=== PATIENT | male | born 1955 | race Caucasian/White ===

== ENCOUNTER → 2024-01-21 18:00 | Outpatient (REF) | payer MEDICARE, OTHER, SELFPAY ==
--- NOTE | 2024-01-17 11:05 | PN.DIAED02 ---
Referral
DSME Class Series Code: [id number]
Referred For: Diabetes Self-Management Training
PHI Release Authorization Form Signed: Yes
Patient Problems:
Current Active Problems
Problem Status Onset
Type 2 diabetes mellitus
Demographic
(1) Type 2 diabetes mellitus
Status: Acute Code(s): E11.9 - Type 2 diabetes mellitus without complications
Patient's primary language-: Lao
Education: Advanced college degree
Occupation: Retired
- Social
Primary Support Person: Self & spouse
Primary Care Takers: Self
Living Arrangements: Self & spouse
- Learning Methods
Preferred Method: Lecture/audio
Barriers to Learning: None
Glycemic Control
- Blood Glucose Monitoring Assessment
Date: 01/17/24
Blood glucose monitoring at home: No
Monitor Brands: [employer] (Contour Next EZ)
Frequency: 2x per day
Time: fasting, after breakfast, after lunch, after dinner
- Hemoglobin A1c
Date: 12/26/23
A1C Percentage (%): 6.5
Medical History of Diabetes
Family Diabetes History: Mother, Sibling (brother), Grandmother
Previous Diabetes Education: No
Previous visit with Dietitian: No
Complications/Comorbidity/Specialist: Hypertension
Measures
- Anthropometrics
Height: 5 ft 11 in
Actual Weight: 209 lb (intentional 12# weight loss)
- Blood Pressure / Pulse
Blood pressure: 125/80
- Diabetes Management
Medical Management for Diabetes: Complete physical exam (12/24/2023), Dental exam (01/02/2024), Dilated eye exam (03/07/2023), Flu Vaccination (08/27/2023), Other (Covid-19 vaccine-01/25/21,04/13/22,11/03/21,10/04/22)
Self-Care
- Tobacco Usage
Do you now, or have you ever smoked?: Never smoked
- Alcohol & Drugs Usage
Drinks Alcohol: Yes
Amount/day: < 1 drink per day (usually drinks 1 beer/day, has stopped since dx, now once weekly)
- Meals & Dining
Meals & Dining: Patient skips meals: No, Food Intolerance / Allergy: No, Cultural / Temple Dietary Needs: No
Primary Food Facilities And Grounds Director: Spouse
Primary Behavioral Specialist: Spouse
Dining Out Frequency: 1-3x per week (2)
- Physical Activity
Physical Limitation: No
Patient participates in physical Activity: Yes
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
Duration: > 50 minutes
Frequency: 1-2x per week (2)
Intensity: Easy
- Patient-Self Assessment
Diabetes Knowledge: Fair
Feelings About Diabetes: Fear (verbalized to me), Overwhelmed / Confused
General Health: Good
Importance of Health: Extremely
Stress Level: High
Diabetes Interferes With:: Other ('not sure yet')
Depression Survey Score: 8
Care Plan
- Education Needs
Patient Education Needs: Diabetes disease process, Chronic complications, Acute complications, Medication, Monitoring, Physical activity, Psychosocial Adjustment, Nutritional management, Goal setting & problem solving
Recommended Diabetes Training Program based on assessment: Outpatient Diabetes Education Program
- Plan of Care
Plan of Care:
Sal recently diagnosed, A1C 6.5%. No medications for diabetes at this time. He has made dietary changes, consuming protein prior to meals, decreasing daily consumption of 1 beer to having 1 weekly. He states insurance will pay for any meter.
Provided with and instructions given on Contour Next EZ glucometer. Good return demonstration with result 105 mg/dl, 3 hr post breakfast. Aware of testing technique, sites, testing pattern and expected results (handout provided). To test 2x/day for
3 days, then 3 days off, or test every other day 2x/day. Goals established and direction to class given. (Marizol)present and to attend classes as support. Phone number provided for follow up questions.
--- NOTE | 2024-01-17 11:39 | PN.DIAED04 ---
Education Record
- Education Record
Class Attended: Class 1 (pre registration 01/17/24 or outpt DSME classes starting 01/21/24)
DSME Class Series Code: [id number]
Instructor: Registered Nurse (Nisha Vega, RN, BSN, [facility])
Class Curriculum:
Outpatient Diabetes Education Program:
Initial Assessment (45 minutes)
Individualized assessment
Develop personal strategies to promote health and behavior change
Development of diabetes self-management support plan
Class Length (mins): 45
Pre-Program Knowledge: Needs review / Assistance
Pre-Test Score (%): 71
Goals
- Goal 1
Being Active: Exercise more often (Goal is to walk, ride bicycle 4 times/week for 30 minutes (at least))
Goals To Be Evaluated: Exercise more often
- Goal 2
Healthy Eating: Make better food choices (has 'changed my diet on a dime'), Follow meal plan, Reduce portion sizes
Goals To Be Evaluated: Make better food choices. Follow meal plan. Reduce portion sizes
- Goal 3
Monitoring: Take blood sugar in the prescribed pattern
Goals To Be Evaluated: Test BG-prescribed times
--- NOTE | 2024-01-22 13:38 | PN.DIAED14 ---
This is to notify you that your patient with diabetes, RAFAEL NICHOLS ( 1955), has enrolled in our diabetes self-management classes that are being held at [facility].
These classes will include an introduction to diabetes, diet, medication, exercise and prevention of complications. At the end of our class series, you will receive a report of your patient's participation and progress for your records.
Please contact me at the Diabetes Center, , if there is any particular information regarding your patient that might be helpful to me.
Sincerely,
--- NOTE | 2024-01-22 13:38 | PN.DIAED04 ---
Education Record
- Education Record
Class Attended: Class 1
DSME Class Series Code: [id number]
Instructor: Registered Nurse (Nisha Vega, RN, BSN, CDE)
Class Length (mins): 120
Post-Class 1 Test Score (%): 94
--- NOTE | 2024-01-28 14:13 | PN.DIAED06 ---
Meal Plans - Regular
- Meal Plan
Diabetic Meal Plan Name: 2000 calories
Breakfast - Total Carbohydrate (grams): 45
Breakfast - Starch Carbohydrate: 0
Breakfast - Fruit Carbohydrate: 0
Breakfast - Milk Carbohydrate: 0
Breakfast - Nonstarchy Vegetables: Yes
Breakfast - Meat/Protein: 1
Breakfast - Fat: 2
Morning Snack - Total Carbohydrate (grams): 30
Morning Snack - Starch Carbohydrate: 0
Morning Snack - Fruit Carbohydrate: 0
Morning Snack - Milk Carbohydrate: 0
Morning Snack - Nonstarchy Vegetables: Yes
Morning Snack - Meat/Protein: 0.5
Morning Snack - Fat: 0
Lunch - Total Carbohydrate (grams): 45
Lunch - Starch Carbohydrate: 0
Lunch - Fruit Carbohydrate: 0
Lunch - Milk Carbohydrate: 0
Lunch - Nonstarchy Vegetables: Yes
Lunch - Meat/Protein: 3
Lunch - Fat: 1
Afternoon Snack - Total Carbohydrate (grams): 30
Afternoon Snack - Starch Carbohydrate: 0
Afternoon Snack - Fruit Carbohydrate: 0
Afternoon Snack - Milk Carbohydrate: 0
Afternoon Snack - Nonstarchy Vegetables: Yes
Afternoon Snack - Meat/Protein: 0.5
Afternoon Snack - Fat: 0
Dinner - Total Carbohydrate (grams): 45
Dinner - Starch Carbohydrate: 0
Dinner - Fruit Carbohydrate: 0
Dinner - Milk Carbohydrate: 0
Dinner - Nonstarchy Vegetables: Yes
Dinner - Meat/Protein: 4
Dinner - Fat: 2
Evening Snack - Total Carbohydrate (grams): 15
Evening Snack - Starch Carbohydrate: 0
Evening Snack - Fruit Carbohydrate: 0
Evening Snack - Milk Carbohydrate: 0
Evening Snack - Nonstarchy Vegetables: Yes
Evening Snack - Meat/Protein: 0
Evening Snack - Fat: 0
== END ==
LOC: DES 18:00
PROVIDERS: ATTENDING PHYSICIAN Family Medicine
DX: E11.9 Type 2 diabetes mellitus without complications (principal)
CPT/HCPCS: 99078

== ENCOUNTER → 2024-01-28 18:00 | Outpatient (REF) | payer MEDICARE, OTHER, SELFPAY ==
--- NOTE | 2024-01-29 08:43 | PN.DIAED04 ---
Education Record
- Education Record
Class Attended: Class 2
DSME Class Series Code: [id number]
Instructor: Registered Dietitian (Lakeshia Montes De Oca, RD, LDN, CDE)
Class Length (mins): 120
== END ==
LOC: DES 18:00
PROVIDERS: ATTENDING PHYSICIAN Family Medicine
DX: E11.9 Type 2 diabetes mellitus without complications (principal)
CPT/HCPCS: 99078

== ENCOUNTER → 2024-02-04 12:00 | Outpatient (REF) | payer MEDICARE, OTHER, SELFPAY ==
--- NOTE | 2024-02-11 11:01 | PN.DIAED04 ---
Education Record
- Education Record
Class Attended: Class 3
DSME Class Series Code: [id number]
Instructor: Registered Dietitian (Lakeshia Montes De Oca, RD, LDN, CDE)
Class Length (mins): 120
Post-Class 2 & 3 Test Score (%): 88
== END ==
LOC: DES 12:00
PROVIDERS: ATTENDING PHYSICIAN Family Medicine
DX: E11.9 Type 2 diabetes mellitus without complications (principal)
CPT/HCPCS: 99078

== ENCOUNTER → 2024-02-08 13:26 | Outpatient (REF) | payer MEDICARE, OTHER, SELFPAY | LOC: RAD 13:26 | PROVIDERS: ATTENDING PHYSICIAN Nurse Practitioner Family | DX: S16.1XXA Strain of muscle, fascia and tendon at neck level, initial encounter (principal) | CPT/HCPCS: 72040 ==

== ENCOUNTER → 2024-02-11 18:00 | Outpatient (REF) | payer MEDICARE, OTHER, SELFPAY ==
--- NOTE | 2024-02-12 13:19 | PN.DIAED04 ---
Education Record
- Education Record
Class Attended: Class 4
DSME Class Series Code: [id number]
Instructor: Registered Nurse (Nisha Vega, RN, BSN, CDE)
Class Length (mins): 120
Post-Class 4 Test Score (%): 93
== END ==
LOC: DES 18:00
PROVIDERS: ATTENDING PHYSICIAN Family Medicine
DX: E11.9 Type 2 diabetes mellitus without complications (principal)
CPT/HCPCS: 99078

== ENCOUNTER → 2024-02-18 18:00 | Outpatient (REF) | payer MEDICARE, OTHER, SELFPAY ==
--- NOTE | 2024-02-20 10:59 | PN.DIAED16 ---
This is to notify you that your patient with diabetes, RAFAEL NICHOLS ( 1955), has attended the entire series of Diabetes Self-Management Education Classes.
Class 1 (120 minutes): Diabetes Overview - monitoring, stress/psychosocial adjustment, support, goal setting
Class 2 (120 minutes): Meal Planning - serving sizes, menu plans
Class 3 (120 minutes): Introduction to Carbohydrate Counting, Analyzing Food Labels
Class 4 (120 minutes): Medication, Exercise and Activity
Class 5 (120 minutes): Sick Day Management, Strategies to Reduce Complications, Problem Solving, Resources
The following behavioral goals were identified:
Exercise more often
Make better food choices
Follow meal plan
Reduce portion sizes
Test BG-prescribed times
A follow-up call will be made within three to six months to evaluate attainment of these goals and to check post-program Hemoglobin A1c and overall progress. All class participants are encouraged to contact me if I can be any further assistance in
learning how to manage their diabetes.
Sincerely,
--- NOTE | 2024-02-21 12:42 | PN.DIAED04 ---
Education Record
- Education Record
Class Attended: Class 5
DSME Class Series Code: [id number]
Instructor: Registered Nurse (Nisha Vega, RN, BSN, [facility])
Class Curriculum:
Outpatient Diabetes Education Program:
Class 5 (120 minutes)
Prevent, detect, and treat acute complications
Prevent, detect, and treat chronic complications through risk reduction
Develop personal strategies to address psychosocial issues and concerns
Development of diabetes self-management support plan
Letter to physician with DSMS plan attached sent
Class Length (mins): 120
Post-Program Knowledge: Demonstrates competency
Post-Test Score (%): 88
Post-Program Assessment
- Post-Program Assessment
Actual Weight: 209 lb 2 oz
Blood pressure: 129/79
Post-Program Depression Survey Score: 27 ('Lost a child, under therapist care')
Reviewing Previous Goals?: Yes
Pre-Program Depression Survey Score: 8
- Goals 1 Evaluation
Goals To Be Evaluated: Exercise more often
- Goals 2 Evaluation
Goals To Be Evaluated: Make better food choices. Follow meal plan. Reduce portion sizes
- Goals 3 Evaluation
Goals To Be Evaluated: Test BG-prescribed times
== END ==
LOC: DES 18:00
PROVIDERS: ATTENDING PHYSICIAN Family Medicine
DX: E11.9 Type 2 diabetes mellitus without complications (principal)
CPT/HCPCS: 99078

== ENCOUNTER → 2025-07-03 09:35 | Outpatient (REF) | payer MEDICARE, OTHER, SELFPAY | LOC: PAVMRI 09:35 | PROVIDERS: ATTENDING PHYSICIAN Student in an Organized Health Care Education/Training Program; FAMILY PHYSICIAN Nurse Practitioner Family | DX: M54.50 Low back pain, unspecified (principal); M51.27 Other intervertebral disc displacement, lumbosacral region; M54.16 Radiculopathy, lumbar region | CPT/HCPCS: 72148 ==